=== PATIENT | male | born 1945 | race Caucasian/White ===

== ENCOUNTER 2017-12-13 19:10 | Emergency (ER) | payer OTHER ==
[~2017-12-13 19:10] MED LIST: ISOVUE-370 76%-LOCM 1 ML ONE
[2017-12-13 19:30] LABS: #Basophils 0.1 thou/uL (0.0-0.2); #Eosinphils 0.2 thou/uL (0.0-0.7); #Neutrophils 9.3 thou/uL (1.40-6.50); %Basophils 0.5 % (0.0-1.0); %Eosinophils 1.6 % (0.0-10.0); %Lymphocytes 8.9 % (21.0-51.0); %Monocytes 8.9 % (0.0-10.0); %Neutrophils 80.1 % (42.0-75.0); Hemoglobin 12.7 g/dL (14.0-18.0); Mean Corpuscular HGB CONC 33.6 g/dL (32.0-36.0); Mean Corpuscular Hemoglobin 31.5 pg (27.0-31.0); Mean Corpuscular Volume 93.7 fL (78.0-98.0); Mean Platelet Volume 8.6 fL (7.4-10.4); Platelet Count 199 thou/uL (130-400); RBC Distribution Width 11.8 % (11.5-14.5); Red Blood Cell (RBC) Count 4.03 mill/uL (4.70-6.10); White Blood Cell (WBC) Count 11.6 thou/uL (4.8-10.8)
[2017-12-13 19:37] LABS: PTT 27.1 SEC (22.9-36.1); Prothrombin Time 13.3 SEC (12.0-14.7)
[2017-12-13 19:52] LABS: ALT (SGPT) 20 U/L (8-55); AST (SGOT) 21 U/L (5-34); Albumin 4.3 g/dL (3.4-4.8); Alkaline Phosphatase 73 U/L (40-150); Anion Gap 13 mmol/L (10-20); BUN (Urea Nitrogen) 39 mg/dL (8.4-25.7); Bilirubin, Total 0.5 mg/dL (0.2-1.2); Calc. Creatinine Clearance 0 mL/min (70-130); Calcium 9.5 mg/dL (7.8-10.44); Carbon Dioxide 27 mmol/L (23-31); Chloride 107 mmol/L (98-107); Estimated GFR-MDRD 44; Globulin 2.4 g/dL (2.4-3.5); Glucose 107 mg/dL (80-115); Potassium 4.8 mmol/L (3.5-5.1); Protein, Total 6.7 g/dL (5.8-8.1); Sodium 142 mmol/L (136-145)
--- NOTE | 2017-12-13 20:39 | RAD ---
TWO VIEWS OF THE LEFT FEMUR: 12/13/17 COMPARISON: None. HISTORY: Left femur pain after injury. FINDINGS: two views of the left femur shows no evidence of acute fracture or dislocation. Mild soft tissue swel ling is seen. No degenerative changes are seen in the hip or knee. IMPRESSION: No evidence of acute osseous abnormality. POS: [facility]
--- NOTE | 2017-12-13 20:45 | RAD ---
FOUR VIEWS OF THE LEFT ELBOW: 12/13/17 COMPARISON: None. HISTORY: [place]li[place] and fell [place] the [place] with left elbow pain. FINDINGS: Four views of the left elbow shows no evidence of acute fracture or dislocation. 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 No elbow effusion is seen, but evaluation is limited as the lateral radiogr aph is not a true lateral radiograph of the elbow. No degenerative changes are seen. IMPRESSION: No evidence of acute osseous abnormality of the left elbow. POS: [facility]
--- NOTE | 2017-12-13 20:57 | CT ---
CTA OF THE PELVIS AND BILATERAL LOWER EXTREMITIES: 12/13/17 HISTORY: Left lower extremity arterial injury. Injury to the left upper leg. TECHNIQUE: Multiple contiguous axial images were obtained in a CTA of the pelvis and bilateral lower extremities for runoff. 3D sagittal and coronal MIP reformats were performed. FINDINGS: There is a large hematoma in the anterior thigh. There is hyperdensity within this from active extrav asation at the time of this examination. The superficial femoral artery is 3.6 cm deep to the hematom a and the quadriceps musculature is interposed between the hematoma and the superficial femoral arter y. The profunda femoral artery is also patent on the left. No significant major arterial branches cou rse up to the hematoma. Mild diffuse atherosclerotic disease is seen in the distal aorta, bilateral external iliac arteries, bilateral common femoral arteries and bilateral superficial femoral arteries. There is occlusion of t he left superficial femoral artery just above the knee with reconstitution of flow in the popliteal a rtery via profunda collaterals. The length of the occlusion is a short segment measuring less than 2 cm in length. Moderate atherosclerotic disease is seen in the right popliteal artery without evidence of occlusion. There is three vessel runoff on the right. Only two vessel runoff is seen on the left with absence of the anterior tibial artery on the left. There is scattered diverticula in the pelvis. No pelvic eliseo opathy is seen. Degenerative changes are seen in the spine. IMPRESSION: 1. There is a large hematoma in the anterior thigh with active extravasation. No major arterial branches seen coursing to this Hematoma. 2. 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 This is likely secondary to atherosclerotic di sease and is likely chronic. 3. Three vessel right and two vessel left runoff. 4. Diverticulosis. POS: [facility]
[2017-12-13] MEDS ORDERED: Ketorolac Tromethamine 30 MG/ML VIAL ONE (22:06)
[2017-12-13] MEDS ORDERED: Adacel (T-DAP) 0.5 ML VIAL ONE (22:06)
[2017-12-13] MEDS ORDERED: HYDROcodone/Acetaminophen 10/325 mg Tablet ONE (22:06)
[2017-12-13 22:34] LABS: Bilirubin Negative (Negative); Blood, Urine Negative (Negative); Clarity CLEAR (Clear); Glucose, Urine (Dipstick) Negative (Negative); Leukocyte Negative (Negative); Nitrite Negative (Negative); Protein, Urine (Dipstick) Negative (Neg-Trace); Urobilinogen 0.2 mg/dL (0.2-1.0)
== END 2017-12-13 23:15 | disposition home or self-care (01) ==
LOC: ERS 19:10
DX: S51.012A Laceration without foreign body of left elbow, initial encounter (principal); S70.12XA Contusion of left thigh, initial encounter; E78.5 Hyperlipidemia, unspecified; I10 Essential (primary) hypertension; Z23 Encounter for immunization; Z79.899 Other long term (current) drug therapy; Z79.82 Long term (current) use of aspirin; W01.0XXA Fall on same level from slipping, tripping and stumbling without subsequent striking against object, initial encounter; Y92.828 Other wilderness area as the place of occurrence of the external cause
CPT/HCPCS: 80053; 81003; 85025; 85610; 85730; 86850; 86900; 86901; 90471; 90715; 96360; 96361; 96374; 96375; G0390; J1885; J2270

== ENCOUNTER 2018-04-10 05:51 | Day surgery (SDC) | payer OTHER ==
[2018-04-09 14:46] VITALS: BMI 31.0
[~2018-04-10 05:51] MED LIST changes: +Cyclopentolate 1% Opth Drop 2 ML BOT FS SCH; +Fluorouracil 100 MG, Enoxaparin Sodium 25 MG, EPINEPHrine 0.3 MG, Dextrose 50% 3 ML in ... IVPB SCH; -ISOVUE-370 76%-LOCM 1 ML ONE; +Phenylephrine 2.5% Ophth Soln 5 ML BOT FS SCH
[2018-04-10] MEDS ORDERED: Cyclopentolate 1% Opth Drop 2 ML BOT ONE (06:17)
[2018-04-10] MEDS ORDERED: Phenylephrine 2.5% Ophth Soln 5 ML BOT ONE (06:17)
[2018-04-10] MEDS ORDERED: Fentanyl 100 MCG/2 ML VIAL ONE (06:23)
[2018-04-10] MEDS ORDERED: PROPOFOL 20 ML ONE (06:23)
[2018-04-10] MEDS ORDERED: Midazolam HCl 2 mg/2 ml Vial ONE (06:23)
--- NOTE | 2018-04-10 08:22 | OP ---
DATE OF PROCEDURE: 04/10/2018 PREOPERATIVE DIAGNOSIS: Rhegmatogenous retinal detachment, left eye. POSTOPERATIVE DIAGNOSIS: Rhegmatogenous retinal detachment, left eye. PROCEDURE: Pars plana vitrectomy and retinal detachment repair, left eye. SURGEON: Dr. Zain Fragoso ANESTHESIA: Local monitored anesthesia care. PROCEDURE IN DETAIL: The patient was identified in the preoperative holding area. Appropriate infor med consent for the planned surgical procedure left eye had been obtained. The patient was transport ed to the OR suite and appropriate cardiopulmonary monitoring was established. Local anesthesia obta ined using retrobulbar and modified Van Lint lid block using 50/50 mixture of 4% lidocaine and 0.75% bupivacaine. The patient was prepped and draped in the usual sterile manner for ophthalmic surgery o n the left eye. Lid speculum was placed in the left eye. The 25-gauge trocars placed in conjunctiva and sclera supratemporally, inferotemporally, and supranasally. Infusion line was placed inferotemp orally. Light pipe and vitreous cutter were inserted into the eye. Core vitrectomy was performed. Peripheral retina was trimmed flat using wide field viewing system, traction was carefully removed fr om the tear temporally. Posterior drain retinotomy was created along the 2 o'clock meridian at the e dge of the supratemporal arcade. Complete air fluid exchange was performed with 10 minutes being all owed for fluid to drain posteriorly. A 360 laser was placed using endolaser delivery device. A 28% sulfur hexafluoride gas was infused into the eye. Trocars were removed. Eye was noted to retain pre ssure well. Retrobulbar Kenalog and subconjunctival Ancef were placed. Atropine and antibiotic oint ment were placed, and the eye was patched and shielded. The patient was taken the postoperative [facility] in good condition having suffered no immediate perioperative period. DISCHARGE INSTRUCTIONS: Patient was instructed to keep patch and shield on, avoid lifting or bending , and follow up in the morning with Dr. Fragoso.
== END 2018-04-10 09:10 | disposition home or self-care (01) ==
LOC: SDC 05:51
PROVIDERS: ATTEND Ophthalmology Retina Specialist
PROC: 08T43ZZ Resection of Right Vitreous, Percutaneous Approach (ICD-10-PCS; principal; 2018-04-10)
PROC: 08T53ZZ Resection of Left Vitreous, Percutaneous Approach (ICD-10-PCS; principal; 2018-04-10)
DX: H33.022 Retinal detachment with multiple breaks, left eye (principal); Z79.82 Long term (current) use of aspirin; Z79.899 Other long term (current) drug therapy
CPT/HCPCS: 67025; J0171; J1650; J2250; J2704; J3010; J9190

== ENCOUNTER 2019-12-28 07:44 | Outpatient (CLI) | payer OTHER ==
[2019-12-29 12:20] LABS: SARS-CoV-2 MS2 Positive; SARS-CoV-2 N Gene Negative; SARS-CoV-2 S Gene Negative; SARS-CoV-2 orf1ab Negative
== END 2019-12-28 07:45 | disposition home or self-care (01) ==
LOC: LABBT 07:44
PROVIDERS: ATTEND Ophthalmology Retina Specialist
DX: Z01.812 Encounter for preprocedural laboratory examination (principal); Z11.59 Encounter for screening for other viral diseases; H43.312 Vitreous membranes and strands, left eye
CPT/HCPCS: 87635; U0003

== ENCOUNTER 2019-12-31 05:33 | Day surgery (SDC) | payer OTHER ==
[2019-12-25 09:27] VITALS: BMI 29.5
[2019-12-31] MEDS ORDERED: Phenylephrine 2.5% Ophth Soln 5 ML BOT ONE (06:03)
[2019-12-31] MEDS ORDERED: Cyclopentolate 1% Opth Drop 2 ML BOT ONE (06:03)
[2019-12-31] MEDS ORDERED: Fluorouracil 100 MG, Enoxaparin Sodium 25 MG, EPINEPHrine 0.3 MG in Ophthalmic Irrigati... IRR SCH (06:04)
[2019-12-31] MEDS ORDERED: PROPOFOL 20 ML ONE (06:12)
[2019-12-31] MEDS ORDERED: Fentanyl 100 MCG/2 ML VIAL ONE (06:12)
[2019-12-31] MEDS ORDERED: Midazolam HCl 2 mg/2 ml Vial ONE (06:12)
[2019-12-31] MEDS ORDERED: Lidocaine 1% PF 5 ML VIAL ONE (09:21)
[2019-12-31] MEDS ORDERED: CEFAZOLIN 1 GM VIAL ONE (09:21)
[2019-12-31] MEDS ORDERED: Maxitrol 0.1% Opth Oint 3.5 GM TUBE ONE (09:21)
[2019-12-31] MEDS ORDERED: Triamcinolone 40 MG/ML VIAL ONE (09:21)
[2019-12-31] MEDS ORDERED: Indocyanine Green 25 MG/10 ML VIAL ONE (09:21)
[2019-12-31] MEDS ORDERED: Lidocaine 4% PF 5 ML AMP ONE (09:21)
[2019-12-31] MEDS ORDERED: Bupivacaine PF 0.75% SDV 10 ML ONE (09:21)
--- NOTE | 2019-12-31 20:12 | OP ---
DATE OF PROCEDURE: 12/31/2019 PREOPERATIVE DIAGNOSIS: Epiretinal membrane, left eye. POSTOPERATIVE DIAGNOSIS: Epiretinal membrane, left eye. PROCEDURES PERFORMED: Pars plana vitrectomy and membrane peel, left eye. ANESTHESIA: Local with monitored anesthesia care. DESCRIPTION OF PROCEDURE: The patient was identified in the preoperative holding area. Appropriate informed consent for the planned surgical procedure on the left eye had been obtained. The patient was transported to the operative suite. Appropriate cardiopulmonary established, local anesthesia containing retrobulbar modified Van Lint lid block using 50:50 mixture of 4% lidocaine and 0.75% bupivacaine. The patient was prepped and draped in usual sterile manner for ophthalmic surgery in the left eye. Lid speculum was placed in the left eye. A 25-gauge trocar was placed in the conjunctiva and sclera supratemporally, inferotemporally, and supranasally. Infusion line was placed inferotemporally. Light pipe vitreous cutter inserted to the eye. Core vitrectomy was performed. Indocyanine green dye was infused on the posterior pole x4. Identifying areas of very dense epiretinal membrane, some scattered internal limiting membrane staining. This was peeled in multiple pieces until all visible epiretinal membrane was removed. Prior to surgery, it was well known that the area temporal to the fovea was very disrupted and this was remained so. Complete air-fluid exchange was performed and 10 minutes were allowed for fluid to drain posteriorly. A 28% sulfur hexafluoride gas was infused into the eye. Trocars were removed. Eye was noted to retain pressure well. Retrobulbar Kenalog and subconjunctival Ancef were placed. Antibiotic ointment was placed. The eye was patched and shielded. The patient was taken to postop recovery in good condition having suffered no immediate perioperative complications. The patient was instructed to keep patch on, avoid flat or back positioning. Followup appointment with Dr. Fragoso. Job ID: [id number]
== END 2019-12-31 09:00 | disposition home or self-care (01) ==
LOC: SDC 05:33
PROVIDERS: ATTEND Ophthalmology Retina Specialist
PROC: 08NF3ZZ Release Left Retina, Percutaneous Approach (ICD-10-PCS; principal; 2019-12-31)
PROC: 08T53ZZ Resection of Left Vitreous, Percutaneous Approach (ICD-10-PCS; principal; 2019-12-31)
DX: H35.372 Puckering of macula, left eye (principal); Z79.82 Long term (current) use of aspirin; Z79.899 Other long term (current) drug therapy
CPT/HCPCS: 67025; J0171; J0690; J1650; J2001; J2250; J2704; J3010; J3301; J3490; J9190